=== PATIENT | female | born 1965 | race Caucasian/White ===

== ENCOUNTER 2018-09-18 14:19 | Emergency (ER) | payer MEDICAID | END 2018-09-18 15:28 | disposition home or self-care (01) | LOC: FTE 14:19 | DX: L73.9 Follicular disorder, unspecified (principal) | CPT/HCPCS: 99283; Z7502 ==

== ENCOUNTER 2019-01-27 15:40 | Emergency (ER) | payer MEDICAID ==
[2019-01-27] MEDS: KETOROLAC 60 MG INJ IM (18:32)
[2019-01-27] MEDS: DEXAMETHASONE 10 MG/ML 1 ML INJ IM (18:33)
[2019-01-27] MEDS: ACETAMINOPHEN 500 MG TAB PO (18:39)
[2019-01-27] MEDS: IBUPROFEN 600 MG TAB PO (18:39)
== END 2019-01-27 19:10 | disposition home or self-care (01) ==
LOC: FTE 15:40
DX: S40.021A Contusion of right upper arm, initial encounter (principal); X58.XXXA Exposure to other specified factors, initial encounter; Y92.9 Unspecified place or not applicable
CPT/HCPCS: 99283; Z7502

== ENCOUNTER 2019-04-05 11:37 | Emergency (ER) | payer MEDICAID | END 2019-04-05 13:30 | disposition home or self-care (01) | LOC: FTE 13:30 | DX: J32.9 Chronic sinusitis, unspecified (principal) | CPT/HCPCS: 99283 ==

== ENCOUNTER 2019-04-08 17:32 | Emergency (ER) | payer MEDICAID ==
[2019-04-08 19:46] LABS: URINE BLOOD (Dip) POC Negative (NEGATIVE); URINE GLUCOSE (Dip) POC Negative (NEGATIVE); URINE KETONES (Dip) POC Negative (NEGATIVE); URINE LEUKOCYTE EST (Dip) POC 1+ (NEGATIVE); URINE NITRITE (Dip) POC Negative (NEGATIVE); URINE TOTAL PROTEIN POC Negative (NEGATIVE)
[2019-04-08 19:46] LABS: URINE PH (Dip) POC 6.5 (5.0-8.5)
[2019-04-08 20:27] LABS: ADD UMIC YES; UR ASCORBIC ACID NEGATIVE (NEGATIVE); UR BILIRUBIN (Dip) NEGATIVE (NEGATIVE); UR BLOOD (Dip) NEGATIVE (NEGATIVE); UR CLARITY CLEAR (CLEAR); UR COLOR STRAW (YELLOW); UR GLUCOSE (Dip) NEGATIVE (NEGATIVE); UR KETONES (Dip) NEGATIVE (NEGATIVE); UR LEUKOCYTE ESTERASE (Dip) 1+ Leu/ul (NEGATIVE); UR NITRITE (Dip) NEGATIVE (NEGATIVE); UR RBC 0 /HPF (0-5); UR SPECIFIC GRAVITY (Dip) 1.003 (1.003-1.030); UR SQUAMOUS EPITHELIAL CELL FEW /HPF (FEW); UR TOTAL PROTEIN (Dip) NEGATIVE (NEGATIVE); UR UROBILINOGEN (Dip) NEGATIVE (NEGATIVE); UR WBC 4 /HPF (0-5)
== END 2019-04-08 21:07 | disposition home or self-care (01) ==
LOC: FTE 17:32
DX: N39.0 Urinary tract infection, site not specified (principal)
CPT/HCPCS: 81001; 81003; 99283